=== PATIENT | female | born 1980 | race Caucasian/White ===

== ENCOUNTER → 2024-10-24 | Outpatient (CLI) | payer MEDICAID, SELFPAY ==
[2024-10-27 17:07] LABS: Anti-Cardiolipin Ab, IgG, Qn < 9 GPL U/mL (0-14); Anti-Cardiolipin Ab, IgM, Qn < 9 MPL U/mL (0-12); Beta-2-Glycoprotein I IgA <9 (0-25); Beta-2-Glycoprotein I IgG <9 (0-20); Beta-2-Glycoprotein I IgM <9 (0-32); Dilute Prothrombin Time (dPT) 34.3 sec (0.0-47.6); Dilute Russell Viper Venom 35.9 sec (0.0-47.0); Interpretation Comment: (.); PTT-LA 33.5 sec (0.0-43.5); Thrombin Time 17.1 sec (0.0-23.0); dPT Confirm Ratio 0.95 Ratio (0.00-1.34)
== END | disposition home or self-care (01) ==
PROVIDERS: PCP Internal Medicine; Referring Provider Obstetrics & Gynecology; Visit Provider Obstetrics & Gynecology
DX: N96 Recurrent pregnancy loss (principal)
CPT/HCPCS: 36415; 86146; 86147

== ENCOUNTER → 2024-11-25 | Outpatient (CLI) | payer MEDICAID, SELFPAY ==
--- NOTE | 2024-11-25 12:10 | EMB_PTH ---
PATIENT: SOFIA AMADOR LOC: [facility] U#:[id number] AGE/SX: 44/F ROOM: RE11/25/[address]: Dr. Lala Villalta MD : [id number] BED: DIS: 11/25/2024 SPEC #: [id number] RECD: 11/25/24 17:04 STATUS: VIRIDIANA REQ #: [id number] KAYLEE: 11/25/24 12:[address]: Lala Villalta DEPT: SURGICAL PATHOLOGY RECD BY: Kiara Rueda ENTERED: 11/26/24 09:21 SP TYPE: ENDOM BX/C LINDEN DR: Dr. Jason Dhaliwal MD Tissues: Endometrium, NOS Procedures: Surgery Specimen Level IV HEADER OPERATION: Endometrial biopsy PRE-OP DIAGNOSIS: Abnormal uterine bleeding, due to adenomyosis TISSUE SUBMITTED: Endometrial tissue MICROSCOPIC DIAGNOSIS ENDOMETRIUM, BIOPSY: * Secretory endometrium. MICROSCOPIC DESCRIPTION Slides are reviewed. GROSS DESCRIPTION Received is one container labeled with the patient's name and not further designated. The specimen consists of 3 cylindrical fragments and multiple smaller fragments of basurto-brown soft tissue, which have an aggregate measurement of 2 x 1.8 x 0.3 cm. TE1. EH 11/26/24 CPT: 91567
--- NOTE | 2024-12-02 07:30 | HYST_PTH ---
PATIENT: SOFIA AMADOR [id number] AGE/SX: 44/F ROOM: RE11/25/[address]: Dr. Lala Villalta MD : 1980 BED: DIS: 11/25/2024 SPEC #: [id number] RECD: 12/03/24 09:08 STATUS: VIRIDIANA REJavy #: [id number] KAYLEE: 12/02/24 07:[address]: Lala Villalta DEPT: SURGICAL PATHOLOGY RECD BY: Herminio Ward ENTERED: 12/03/24 09:08 SP TYPE: HYSTERECT OTHR DR: Dr. Jason Dhaliwal MD Tissues: A - Uterus, NOS B - OVARIAN CYST Procedures: Immunohistochemical Stains Surgery Specimen Level V IHC Stain ADDITIONAL HEADER OPERATION: ERAS, laparoscopic assisted vaginal hysterectomy, right salpingectomy PRE-OP DIAGNOSIS: Abnormal uterine bleeding due to adenomyosis, dyspareunia due to medical condition in female, uterine fibroid TISSUE SUBMITTED: A- Uterus, cervix, bilateral fallopian tubes and right ovary, B- Left ovarian cyst wall MICROSCOPIC DIAGNOSIS A. Uterus, cervix, fallopian tubes, right ovary, hysterectomy with bilateral salpingectomy and right oophorectomy: * Cervix: dilated endocervical glands. * Endometrium: secretory phase with focal glandular crowding compatible with hyperplasia (without atypia) - see note. * Myometrium: leiomyoma (2.5 cm) * Right ovary: serous borderline tumor, micropapillary variant - see Synoptic Report. * Bilateral fallopian tubes: no specific pathologic change Note: Evaluation of the endometrium is limited by suboptimal fixation. B. Left ovarian cyst wall, excision: * Serous borderline tumor, micropapillary variant - see Synoptic Report. COMMENT SYNOPTIC REPORT SPECIMEN: Procedure: laparoscopic assisted vaginal hysterectomy Specimen Integrity: Ovary not intact, received open (A, right). Ovarian cyst not intact, received fragmented (B, left). Fallopian tube, left, intact (A). Fallopian tube, right, detached (A). Uterus intact (A). TUMOR? Tumor Site: Right ovary (A). Left ovary (B). Tumor Size: 2.2 cm right ovary (A). Unknown, fragmented left ovarian cyst (B). Histologic Type: Serous borderline tumor, micropapillary variant? Histologic grade: Not applicable? Ovarian Surface Involvement: unknown (specimen B fragmented) Fallopian Tube Surface Involvement: not identified Organ Involvement: Unknown Peritoneal / Ascitic Fluid Involvement: Not submitted/unknown? Chemotherapy Response Score (CRS): Not applicable? REGIONAL LYMPH NODES? Regional Lymph Node Status: not applicable (no regional lymph nodes submitted or found)? DISTANT METASTASIS: not applicable/unknown pTNM CLASSIFICATION (AJCC 8th Edition) pT Category? _X_ pT not assigned (cannot be determined based on available pathological information)? ___ pT0: No evidence of primary tumor? ___ pT1a: Tumor limited to one ovary (capsule intact) or fallopian tube, no tumor on ovarian or fallopian ?tube surface; no malignant cells in ascites or peritoneal washings? ___ pT1b: Tumor limited to both ovaries (capsules intact) or fallopian tubes; no tumor on ovarian or ?fallopian tube surface; no malignant cells in ascites or peritoneal washings? pT1c: Tumor limited to one or both ovaries or fallopian tubes, with any of the following:? ___ pT1c1: Surgical spill? ___ pT1c2: Capsule ruptured before surgery or tumor on ovarian or fallopian tube surface? ___ pT1c3: Malignant cells in ascites or peritoneal washings? ___ pT1 (subcategory cannot be determined)? pT2: Tumor involves one or both ovaries or fallopian tubes with pelvic extension below pelvic brim or primary peritoneal cancer? ___ pT2a: Extension and / or implants on the uterus and / or fallopian tube(s) and / or ovaries? ___ pT2b: Extension to and / or implants on other pelvic tissues? ___ pT2 (subcategory cannot be determined)? pT3: Tumor involves one or both ovaries or fallopian tubes, or primary peritoneal cancer, with microscopically confirmed peritoneal metastasis outside the pelvis and / or metastasis to the retroperitoneal (pelvic and / or para-aortic) lymph nodes? ___ pT3a: Microscopic extrapelvic (above the pelvic brim) peritoneal involvement with or without positive ? retroperitoneal lymph nodes? ___ pT3b: Macroscopic peritoneal metastasis beyond pelvis 2 cm or less in greatest dimension with or ? without metastasis to the retroperitoneal lymph nodes? ___ pT3c: Macroscopic peritoneal metastasis beyond the pelvis more than 2 cm in greatest dimension ? with or without metastasis to the retroperitoneal lymph nodes (includes extension of tumor to capsule ?of liver and spleen without parenchymal involvement of either organ)? ___ pT3 (subcategory cannot be determined)? T Suffix: Not applicable? pN Category: pN not assigned (no lymph nodes submitted or found)? ADDITIONAL FINDINGS Additional Findings (select all that apply) _X_ None identified? ___ Serous tubal intraepithelial carcinoma (STIC)? ___ Endometriosis? ___ Endosalpingiosis? ___ Other (specify): SPECIAL STUDIES p53 Immunohistochemistry? _X_ Normal (wild-type) expression? (A12, B1) COMMENTS: Additional IHC utilized in the assessment: p16, ER, IA, CK7, CK20, PAX8 (blocks A12 and B1) support the diagnosis. The findings were discussed with Dr Villalta 01/14/25 at 10:30 AM. Selected slides/images (ovaries) were reviewed in intradepartmental consultation by Dr Philip Proctor ([facility] pathology division, [facility]). Selected slides/images (endometrium) were reviewed in intradepartmental consultation by Dr Eloise Pelayo and Dr David Marquez (Community pathology division, [facility]). MICROSCOPIC DESCRIPTION Slides are reviewed. These tests were developed and their performance characteristics determined by [facility]. They may not have been cleared or approved by the U.S. Food and Drug Administration. The FDA has determined that such clearance or approval is not necessary. The above immunohistochemical/dualISH markers are ordered and reviewed by the Pathologist. GROSS DESCRIPTION A. The specimen is received in fixative in one container labeled with the patient's name and designated Uterus, cervix, bilateral fallopian tubes, right ovary. The specimen weighs 165.6 gm and consists of a uterus measuring 10.0 cm in length, 6.5 cm in width, and 6.0 cm in thickness. There is an attached left fallopian tube measuring 4.0 cm in length and 0.8 cm in diameter. There is an unattached, presumed right fallopian tube measuring 4.7cm in length and 0.5cm in diameter, and a detached, very irregular ovary with multiple cysts. One of the cysts is open and has a yellow appearance. The detached ovary weighs 10.5 gm. The ectocervix measures 3.9 x 3.4 cm. The os measures 1.3 x 1.0 cm. The uterus appears partially distorted by leiomyoma(s). Upon opening the uterus, the endometrium appears thickened, 0.5 cm. Nabothian cysts are seen in the cervix and one leiomyoma in the anterior uterine wall measures 2.0 x 1.7 x 2.5 cm. No hemorrhage or necrosis is observed grossly in the leiomyoma. The myometrium is 2.5 cm in maximal thickness. [employer] sections are submitted as follows: A1- anterior cervix A2- posterior cervix A3- anterior uterine wall and portions of leiomyoma A4- anterior uterine wall A5- anterior uterine wall A6- anterior uterine wall A7- posterior uterine wall A8- posterior uterine wall A9- posterior uterine wall A10- right fallopian tube A11- right ovary and left fallopian tube A12- right ovary B. The specimen is received in fixative in one container labeled with the patient's name and designated Left ovarian cyst wall. The specimen consists of multiple fragments of espinosa tissue measuring in aggregate 2.5 x 2.0 x 1.8 cm. Part of the specimen is clearly a cyst wall with a granular interior surface, 2.0 x 1.2 x 1.0 cm. The entire specimen is submitted in four cassettes. 12/03/2024 CPT:[id number]
== END | disposition home or self-care (01) ==
LOC: LABSPEC 15:07
PROVIDERS: PCP Internal Medicine; Referring Provider Obstetrics & Gynecology; Visit Provider Obstetrics & Gynecology
DX: N93.9 Abnormal uterine and vaginal bleeding, unspecified (principal); N80.03 Adenomyosis of the uterus
CPT/HCPCS: 88305; 88307

== ENCOUNTER 2024-12-02 05:26 | Day surgery (SDC) | payer MEDICAID, SELFPAY ==
--- NOTE | 2024-11-18 12:30 | PAT.ANESEVAL ---
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 When Was Last Pacemaker Check QUESTION #4 FULL TEXT: You/Your Family Experience fever (hyperthermia) with Anesthesia Last Oral Intake Last Oral intake: Last Oral Intake NPO since Meds taken in AM with sips of water? 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 - law enforcement instructor: PONV - law enforcement instructor Female Yes 11/18/24 09:03 HX of Motion Sickness No 11/18/24 09:03 HX of N/V After Surgery Yes 11/18/24 09:03 Non-Smoker Yes 11/18/24 09:03 Duration of Surgery greater Yes 11/18/24 09:03 than 60 minutes Number of Risk Factors 4 11/18/24 09:03 PONV Score Severe Risk 11/18/24 09:03 Height & Weight Height & Weight: Anesthesia: Height & Weight Height 5 ft 4 in 10/24/24 14:22 Respiratory Assessment Respiratory Assessment - law enforcement instructor: Respiratory Tract Infection Hx - law enforcement instructor Hx Respiratory Tract Infection No 11/18/24 09:03 STOP Sleep Apnea STOP Sleep Apnea - law enforcement instructor: STOP Sleep Apnea - law enforcement instructor Hx Hypertension Yes: CONTROLLED WITH MEDS 11/18/24 09:03 Hx Sleep Apnea No 11/18/24 09:03 CPAP BIPAP Do you snore loudly (louder No 11/18/24 09:03 than talking or can be heard Do you often feel tired/ No 11/18/24 09:03 fatigued/ sleepy during daytime? Has anyone observed you stop No 11/18/24 09:03 breathing during sleep? STOP Results Negative 11/18/24 09:03 QUESTION #5 FULL TEXT : Do you snore loudly (louder than talking or can be heard through closed doors)? 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 Specify any problems Hx of Preganancy in last 3 No 11/18/24 09:03 Months Nurse Filling Out Transfusion [email or web address] 11/18/24 09:03 & Questions: Date: 11/18/24 11/18/24 09:03 Time: 09:07 11/18/24 09:03 Patient unable to answer at this time (ie. confused, unrespo /Reproduction History /Reproductive History - law enforcement instructor: /Reproductive Hx- law enforcement instructor Hx Now Gestational Age (in weeks): EDC: Hx Hx Para Hx Section SAB PFSH Medical History (Updated 11/18/24 @ 09:13 by Ike Castellanos) Wears glasses Anxiety Depression Rheumatoid arthritis Anemia Non-smoker History of echocardiogram Cardiology follow-up encounter Migraine headache Thyroid disease Lupus Hypertension Headache Breast lump UTI (urinary tract infection) Bone fracture Back problem Home Medications ?Medication ?Instructions ?Recorded ?Last Taken ?Type bupropion HCl 300 mg 24 hr tablet, 300 mg PO QAM 10/23/24 Unknown History extended release (Wellbutrin XL) ergocalciferol (vitamin D2) 1,250 1,250 mcg PO SUTU 10/23/24 Unknown History mcg (50,000 unit) capsule (Vitamin D2) levothyroxine 50 mcg tablet 50 mcg PO QDAY 10/23/24 Unknown History (Synthroid) metoprolol succinate 25 mg 25 mg PO QDAY 10/23/24 Unknown History tablet,extended release 24 hr (Toprol XL) Allergy/AdvReac Type Severity Reaction Status Date / Time adhesive tape (tape) Allergy Rash Verified 11/18/24 09:02 Penicillins (PCN) Allergy Hives Verified 11/18/24 09:02 Family History (Updated 10/23/24 @ 15:23 by Ernestina Coreas) Mother Asthma Diabetes Hypertension COPD (chronic obstructive pulmonary disease) Grandmother Breast cancer Myocardial infarction, Onset Age: 73 Grandmother Diabetes Thyroid disorder Surgical History (Updated 11/18/24 @ 09:13 by Ike Castellanos) History of delivery Social History (Updated 10/24/24 @ 11:20 by Abena Rehman) number of children: 3 current occupational status: employed 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 Normal sinus rhythm. Echo (EF%) pertinent findings: April 25, 2024. Ejection fraction 60%. There is no aortic stenosis. Consult pertinent findings: April 09, 2024. 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 1. Shortness of breath-check stress test to rule out ischemia. Echo to rule out any underlying structural abnormalities. 2. Systemic lupus erythematosus with lung involvement-patient follows with rheumatology. Never seen cardiology though?will order echo. Recommendation Anesthesia Recommendation Anesthesia recommendation: F/U recommended (Last consult in April 09, 2024 states that they were planning to do a stress test. I do not see evidence of this. Need cardiology to clear patient or if stress test has been done we need to find results.)
--- NOTE | 2024-11-19 14:54 | PAT.ANESEVAL ---
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 When Was Last Pacemaker Check QUESTION #4 FULL TEXT: You/Your Family Experience fever (hyperthermia) with Anesthesia Last Oral Intake Last Oral intake: Last Oral Intake NPO since Meds taken in AM with sips of water? 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 Female Yes 11/18/24 09:03 HX of Motion Sickness No 11/18/24 09:03 HX of N/V After Surgery Yes 11/18/24 09:03 Non-Smoker Yes 11/18/24 09:03 Duration of Surgery greater Yes 11/18/24 09:03 than 60 minutes Number of Risk Factors 4 11/18/24 09:03 PONV Score Severe Risk 11/18/24 09:03 Height & Weight Height & Weight: Anesthesia: Height & Weight Height 5 ft 4 in 10/24/24 14:22 Respiratory Assessment Respiratory Assessment - recreation professor: Respiratory Tract Infection Hx - recreation professor Hx Respiratory Tract Infection No 11/18/24 09:03 STOP Sleep Apnea STOP Sleep Apnea - recreation professor: STOP Sleep Apnea - recreation professor Hx Hypertension Yes: CONTROLLED WITH MEDS 11/18/24 09:03 Hx Sleep Apnea No 11/18/24 09:03 CPAP BIPAP Do you snore loudly (louder No 11/18/24 09:03 than talking or can be heard Do you often feel tired/ No 11/18/24 09:03 fatigued/ sleepy during daytime? Has anyone observed you stop No 11/18/24 09:03 breathing during sleep? STOP Results Negative 11/18/24 09:03 QUESTION #5 FULL TEXT : Do you snore loudly (louder than talking or can be heard through closed doors)? 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 Specify any problems Hx of Preganancy in last 3 No 11/18/24 09:03 Months Nurse Filling Out Transfusion [email or web address] 11/18/24 09:03 & Questions: Date: 11/18/24 11/18/24 09:03 Time: 09:07 11/18/24 09:03 Patient unable to answer at this time (ie. 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: /Reproductive Hx- recreation professor Hx Now Gestational Age (in weeks): EDC: Hx Hx Para Hx Section SAB PFSH Medical History (Updated 11/18/24 @ 09:13 by Ike Castellanos) Wears glasses Anxiety Depression Rheumatoid arthritis Anemia Non-smoker History of echocardiogram Cardiology follow-up encounter Migraine headache Thyroid disease Lupus Hypertension Headache Breast lump UTI (urinary tract infection) Bone fracture Back problem Home Medications ?Medication ?Instructions ?Recorded ?Last Taken ?Type bupropion HCl 300 mg 24 hr tablet, 300 mg PO QAM 10/23/24 Unknown History extended release (Wellbutrin XL) ergocalciferol (vitamin D2) 1,250 1,250 mcg PO SUTU 10/23/24 Unknown History mcg (50,000 unit) capsule (Vitamin D2) levothyroxine 50 mcg tablet 50 mcg PO QDAY 10/23/24 Unknown History (Synthroid) metoprolol succinate 25 mg 25 mg PO QDAY 10/23/24 Unknown History tablet,extended release 24 hr (Toprol XL) Allergy/AdvReac Type Severity Reaction Status Date / Time adhesive tape (tape) Allergy Rash Verified 11/18/24 09:02 Penicillins (PCN) Allergy Hives Verified 11/18/24 09:02 Family History (Updated 10/23/24 @ 15:23 by Ernestnia Coreas) Mother Asthma Diabetes Hypertension COPD (chronic obstructive pulmonary disease) Grandmother Breast cancer Myocardial infarction, Onset Age: 73 Grandmother Diabetes Thyroid disorder Surgical History (Updated 11/18/24 @ 09:13 by Ike Castellanos) History of delivery Social History (Updated 10/24/24 @ 11:20 by Abena Rehman) number of children: 3 current occupational status: employed 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 Normal sinus 11/18/24 12:37 rhythm. Echo Pertinent Findings Echo (EF%) pertinent findings April 25, 2024. Ejection 11/18/24 13:02 fraction 60%. There is no aortic stenosis. Consult Pertinent Findings Consult pertinent findings April 09, 2024. Vik JAIN. 11/18/24 12:45 1. Shortness of breath- check stress test to rule out ischemia. Echo to rule out any underlying structural abnormalities. 2. Systemic lupus erythematosus with lung involvement-patient follows with rheumatology. Never seen cardiology though?will order echo. Current Visit Impressions Current Visit Impressions: Await stress test results or cardiology report Recommendation Anesthesia Recommendation Anesthesia recommendation: F/U recommended
--- NOTE | 2024-11-19 15:02 | NURSING ---
XIOMY BROWN CALLED, SPOKE WITH MAUREEN REGARDING PT NEEDING CARDIO CLEARANCE OR EVIDENCE OF STRESS TEST.
[2024-11-26 09:31] LABS: Absolute Lymphocyte Count 2.26 X10^3/uL (0.83-4.51); Absolute Neutrophil Count 5.1 X10^3/uL (2.0-7.7); Basophil# 0.02 X10^3/uL; Basophil% 0.2 % (0-1); Eosinophil# 0.03 X10^3/uL; Eosinophils% 0.4 % (0-5); Hematocrit 41.2 % (37-47); Hemoglobin 13.4 g/dL (12.0-15.0); Lymphocyte # 2.26 X10^3/ul (0.83-4.51); Lymphocyte % 28.2 % (19-41); Mean Corp Hgb Conc 32.5 g/dL (32-36); Mean Corpuscular Hgb 30.5 pg (27.0-32.0); Mean Corpuscular Volume 93.6 fL (81-99); Mean Platelet Vol. 10.2 fl (6.2-12.0); Monocyte# 0.55 X10^3/uL; Monocyte% 6.9 % (0-10); NRBC Flagged by Analyzer 0 % (0-5); Neutrophil # 5.14 X10^3/uL (2.7-7.7); Neutrophil % 64.1 % (47-70); Platelet Count 253 K/mm3 (150-450); RBC Distribution Width CV 13.5 % (11.6-14.6); RBC Distribution Width SD 46.4 fl (35.1-43.9)
[2024-11-26 10:13] LABS: Anion Gap 10 (5-15); BUN 9 mg/dL (4-19); Calcium,Total 9.3 mg/dL (7.6-11.0); Carbon Dioxide 24.6 mmol/L (21.0-32.0); Chloride 103 mmol/L (98-108); Creatinine, Serum 0.82 mg/dL (0.70-1.20); EST Glomerular Filtration Rate 90 (>60); Glucose 113 mg/dL (70-99); Potassium 4.1 mmol/L (3.3-5.1); Sodium Level 138 mmol/L (133-145)
--- NOTE | 2024-11-26 11:10 | PAT.ANE_ITS ---
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 When Was Last Pacemaker Check QUESTION #4 FULL TEXT: You/Your Family Experience fever (hyperthermia) with Anesthesia Last Oral Intake Last Oral intake: Last Oral Intake NPO since Meds taken in AM with sips of water? 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 Female Yes 11/18/24 09:03 HX of Motion Sickness No 11/18/24 09:03 HX of N/V After Surgery Yes 11/18/24 09:03 Non-Smoker Yes 11/18/24 09:03 Duration of Surgery greater Yes 11/18/24 09:03 than 60 minutes Number of Risk Factors 4 11/18/24 09:03 PONV Score Severe Risk 11/18/24 09:03 Height & Weight Height & Weight: Anesthesia: Height & Weight Height 5 ft 4 in 10/24/24 14:22 Respiratory Assessment Respiratory Assessment - casino assistant manager: Respiratory Tract Infection Hx - casino assistant manager Hx Respiratory Tract Infection No 11/18/24 09:03 STOP Sleep Apnea STOP Sleep Apnea - casino assistant manager: STOP Sleep Apnea - casino assistant manager Hx Hypertension Yes: CONTROLLED WITH MEDS 11/18/24 09:03 Hx Sleep Apnea No 11/18/24 09:03 CPAP BIPAP Do you snore loudly (louder No 11/18/24 09:03 than talking or can be heard Do you often feel tired/ No 11/18/24 09:03 fatigued/ sleepy during daytime? Has anyone observed you stop No 11/18/24 09:03 breathing during sleep? STOP Results Negative 11/18/24 09:03 QUESTION #5 FULL TEXT : Do you snore loudly (louder than talking or can be heard through closed doors)? 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 Specify any problems Hx of Preganancy in last 3 No 11/18/24 09:03 Months Nurse Filling Out Transfusion [email or web address] 11/18/24 09:03 & Questions: Date: 11/18/24 11/18/24 09:03 Time: 09:07 11/18/24 09:03 Patient unable to answer at this time (ie. 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: /Reproductive Hx- casino assistant manager Hx Now Gestational Age (in weeks): EDC: Hx Hx Para Hx Section SAB PFSH Medical History Wears glasses Anxiety Depression Rheumatoid arthritis Anemia Non-smoker History of echocardiogram Cardiology follow-up encounter Migraine headache Thyroid disease Lupus Hypertension Headache Breast lump UTI (urinary tract infection) Bone fracture Back problem Home Medications ?Medication ?Instructions ?Recorded ?Last Taken ?Type bupropion HCl 300 mg 24 hr tablet, 300 mg PO QAM 10/23 Unknown History extended release (Wellbutrin XL) ergocalciferol (vitamin D2) 1,250 1,250 mcg PO SUTU Unknown History mcg (50,000 unit) capsule (Vitamin D2) levothyroxine 50 mcg tablet 50 mcg PO QDAY 10/23/24 Un known History (Synthroid) metoprolol succinate 25 mg 25 mg PO QDAY 10/23/24 Unkn own History tablet,extended release 24 hr (Toprol XL) phentermine 37.5 mg tablet 37.5 mg PO QDAY 11/25/24 Un known History (Adipex-P) Allergy/AdvReac Type Severity Reaction Status Date / Time adhesive tape (tape) Allergy Rash Verified 11/25/24 11:39 Penicillins (PCN) Allergy Hives Verified 11/25/24 11:39 Family History Mother Asthma Diabetes Hypertension COPD (chronic obstructive pulmonary disease) Grandmother Breast cancer Myocardial infarction, Onset Age: 73 Grandmother Diabetes Thyroid disorder Surgical History History of delivery Social History number of children: 3 current occupational status: employed 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 Normal sinus 11/18/24 12:37 rhythm. Echo Pertinent Findings Echo (EF%) pertinent findings April 25, 2024. Ejection 11/18/24 13:02 fraction 60%. There is no aortic stenosis. Consult Pertinent Findings Consult pertinent findings April 09, 2024. Vik JAIN. 11/18/24 12:45 1. Shortness of breath- check stress test to rule out ischemia. Echo to rule out any underlying structural abnormalities. 2. Systemic lupus erythematosus with lung involvement-patient follows with rheumatology. Never seen cardiology though?will order echo. Recommendation Anesthesia Recommendation Anesthesia recommendation: OPTIMIZED for anesthesia
[2024-12-02] VITALS (11 sets, daily range): BP systolic 99–137; BP diastolic 62–83; PULSE 84–92; RESP 12–21; TEMP 36.2–36.7; O2SAT 95–100; BMI 37.2
[2024-12-02 06:12] LABS: Internal QC Validated? YES +Cl - CLEAR BKGD; Pregnancy, Urine Negative Negative
[2024-12-02] MEDS: Lactated Ringers 1,000 ML 40 ML IV ×2 (06:16→13:37)
[2024-12-02] MEDS: Magnesium 1 GM over 15 mins IV (06:16)
[2024-12-02] MEDS: Gabapentin 600 MG Tablet PO (06:34)
[2024-12-02] MEDS: Celecoxib 200 MG Capsule 400 MG PO (06:34)
[2024-12-02] MEDS: Acetaminophen 500 MG Tablet 1000 MG PO ×2 (06:34→13:38)
[2024-12-02] MEDS: Phenazopyridine 95 MG Tablet 190 MG PO (06:35)
[2024-12-02] MEDS: Enoxaparin 40 MG/0.4 ML Syringe SC (06:35)
--- NOTE | 2024-12-02 07:04 | PCM.PRE.AN2 ---
ASA Classification* ASA Classification ASA Classification: 2 (Please keep spine/neck neutral due to RA) Assessment & Plan Anesthesia* Anesthesia Assessment Anesthesia Assessment: Discussed sedation and/or anesthesia options, risks, benefits, and alternatives with patient/parents/legal guardian/POA. Questions invited. The patient/parents/legal guardian/POA seems to understand and agrees to proceed with anesthesia plan. Reviewed the physical assessment, medical history, allergy history and patient home medications list prior to surgery/procedure/anesthetic and documented any changes. Performed airway and anesthesia risk assessments. Anesthesia Type Anesthesia Type: General (Pleasant 44 F with HTN, lupus with some lung involvement, hypothyroid, RA) Anesthesia Focused Assessment* Temperature: 98.0 F Pulse Rate: 89 Blood Pressure: 137/83 Respiratory Rate: 18 Pulse Ox: 100 Oxygen Delivery Method: Room Air Airway Assessment Mouth opens: >3 cm Mallampati Score: II Teeth Condition: Intact and Missing (many missing) Neck Range of motion (ROM): Full ROM (although has full ROM, keep spine/neck neutral due to RA) Focused Labs Anesthesia Preop lab: CBC WBC 8.0 K/mm3 (4.4-11.0) 11/26/24 09:03 11/26/24 RBC 4.40 M/mm3 (4.2-5.4) 11/26/24 09:03 11/26/24 Hgb 13.4 g/dL (12.0-15.0) 11/26/24 09:03 11/26/24 Hct 41.2 % (37-47) 11/26/24 09:03 11/26/24 Plt Count 253 K/mm3 (150-450) 11/26/24 09:03 11/26/24 CHEMISTRY Potassium 4.1 mmol/L (3.3-5.1) 11/26/24 09:01 11/26/24 Sodium 138 mmol/L (133-145) 11/26/24 09:01 11/26/24 Magnesium 2.0 mg/dL (1.5-2.2) 11/26/24 09:01 11/26/24 BUN 9 mg/dL (4-19) 11/26/24 09:01 11/26/24 Creatinine 0.82 mg/dL (0.70-1.20) 11/26/24 09:01 11/26/24 Glucose 113 mg/dL (70-99) H 11/26/24 09:01 11/26/24 TSH 3.030 uIU/mL (0.300-4.200) 11/26/24 09:01 11/26/24 COAG Urine Test Negative Negative 12/02/24 05:50 12/02/24 [facility] Clinic Negative 11/25/24 11:51 11/25/24 Pre-Assessment Diagnosis/Proposed Procedure Planned Operative Procedure(s): LAP ASSISTED VAGINAL HYSTERECTOMY, BILATERAL SALPINGECTOMY Anesthesia History 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 When Was Last Pacemaker Check QUESTION #4 FULL TEXT: You/Your Family Experience fever (hyperthermia) with Anesthesia Last Oral Intake Last Oral intake: Last Oral Intake NPO since 03:15 12/02/24 06:25 Meds taken in AM with sips of No 12/02/24 06:25 water? 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 - national sales representative: PONV - national sales representative Female Yes 11/18/24 09:03 HX of Motion Sickness No 11/18/24 09:03 HX of N/V After Surgery Yes 11/18/24 09:03 Non-Smoker Yes 11/18/24 09:03 Duration of Surgery greater Yes 11/18/24 09:03 than 60 minutes Number of Risk Factors 4 11/18/24 09:03 PONV Score Severe Risk 11/18/24 09:03 Height & Weight Height & Weight: Anesthesia: Height & Weight Height 5 ft 4 in 12/02/24 06:25 Weight: 98.3 kg 12/02/24 06:25 Body Mass Index (BMI) 37.2 12/02/24 06:25 Respiratory Assessment Respiratory Assessment - national sales representative: Respiratory Tract Infection Hx - national sales representative Hx Respiratory Tract Infection No 11/18/24 09:03 STOP Sleep Apnea STOP Sleep Apnea - national sales representative: STOP Sleep Apnea - national sales representative Hx Hypertension Yes: CONTROLLED WITH MEDS 11/18/24 09:03 Hx Sleep Apnea No 11/18/24 09:03 CPAP BIPAP Do you snore loudly (louder No 11/18/24 09:03 than talking or can be heard Do you often feel tired/ No 11/18/24 09:03 fatigued/ sleepy during daytime? Has anyone observed you stop No 11/18/24 09:03 breathing during sleep? STOP Results Negative 11/18/24 09:03 QUESTION #5 FULL TEXT : Do you snore loudly (louder than talking or can be heard through closed doors)? 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 Specify any problems Hx of Preganancy in last 3 No 11/18/24 09:03 Months Nurse Filling Out Transfusion [id number] 11/18/24 09:03 & Questions: Date: 11/18/24 11/18/24 09:03 Time: 09:07 11/18/24 09:03 Patient unable to answer at this time (ie. confused, unrespo /Reproduction History /Reproductive History - national sales representative: /Reproductive Hx- national sales representative Hx Now Gestational Age (in weeks): EDC: Hx Hx Para Hx Section SAB Active Medications Active Medications: Current Medications Generic Name Dose Route Start Last Admin Trade Name Freq PRN Reason Stop Dose Admin Acetaminophen 1,000 mg 12/02/24 07:35 12/02/24 06:34 Acetaminophen 500 Mg Tablet PO 12/02/24 07:36 1,000 mg PREOP ONE Administration Celecoxib 400 mg 12/02/24 07:35 12/02/24 06:34 Celecoxib 200 Mg Capsule PO 12/02/24 07:36 400 mg X1 ONE Administration Dexamethasone Sodium Phosphate 8 mg 12/02/24 07:35 Dexamethasone 4 Mg/Ml Vial IV 12/02/24 07:36 X1 ONE Enoxaparin Sodium 40 mg 12/02/24 07:35 12/02/24 06:35 Enoxaparin 40 Mg/0.4 Ml Syringe SC 12/02/24 07:36 40 mg X1 ONE Administration Gabapentin 600 mg 12/02/24 07:35 12/02/24 06:34 Gabapentin 600 Mg Tablet PO 12/02/24 07:36 600 mg PREOP ONE Administration Lactated Ringer's 1,000 mls @ 40 mls/hr 12/02/24 07:35 12/02/24 06:16 IV 40 mls/hr .Q25H DAIN Administration Clindamycin Phosphate 900 mg in 50 mls @ 75 mls/hr 12/02/24 07:35 Cleocin IV 12/02/24 08:14 PREOP ONE Gentamicin Sulfate 360 mg/ 59 mls @ 118 mls/hr 12/02/24 07:35 Dextrose IV 12/02/24 08:04 PREOP ONE Magnesium Sulfate 1 gm/ 102 mls @ 408 mls/hr 12/02/24 07:35 12/02/24 06:16 Dextrose IV 12/02/24 07:49 408 mls/hr X1 ONE Administration Insulin Human Lispro 0 unit 12/02/24 07:35 Insulin Lispro 100 Unit/Ml Insuln.Pen SC 12/02/24 18:00 Q4H PRN PRN BG >/= 180, SEE PROTOCOL Protocol Ondansetron HCl 4 mg 12/02/24 07:35 Ondansetron 4 Mg/2 Ml Vial IV 12/02/24 07:36 X1 ONE Phenazopyridine HCl 190 mg 12/02/24 07:35 12/02/24 06:35 Phenazopyridine 95 Mg Tablet PO 12/02/24 07:36 190 mg X1 ONE Administration Scopolamine HBr 1 patch 12/02/24 07:35 Scopolamine 1mg/72hr Patch TD 12/02/24 07:36 X1 ONE PFSH Medical History Wears glasses Anxiety Depression Rheumatoid arthritis Anemia Non-smoker History of echocardiogram Cardiology follow-up encounter Migraine headache Thyroid disease Lupus Hypertension Headache Breast lump UTI (urinary tract infection) Bone fracture Back problem Home Medications ?Medication ?Instructions ?Recorded ?Last Taken ?Type bupropion HCl 300 mg 24 hr tablet, 300 mg PO QAM 10/23/24 12/01/24 History extended release (Wellbutrin XL) ergocalciferol (vitamin D2) 1,250 1,250 mcg PO SUTU 10/23/24 11/30/24 History mcg (50,000 unit) capsule (Vitamin D2) levothyroxine 50 mcg tablet 50 mcg PO QDAY 10/23/24 12/01/24 History (Synthroid) metoprolol succinate 25 mg 25 mg PO QDAY 10/23/24 12/01/24 History tablet,extended release 24 hr (Toprol XL) phentermine 37.5 mg tablet 37.5 mg PO QDAY 11/25/24 11/25/24 History (Adipex-P) Allergy/AdvReac Type Severity Reaction Status Date / Time adhesive tape (tape) Allergy Rash Verified 12/02/24 06:39 Penicillins (PCN) Allergy Hives Verified 12/02/24 06:39 Family History Mother Asthma Diabetes Hypertension COPD (chronic obstructive pulmonary disease) Grandmother Breast cancer Myocardial infarction, Onset Age: 73 Grandmother Diabetes Thyroid disorder Surgical History History of delivery Social History number of children: 3 current occupational status: employed 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
--- NOTE | 2024-12-02 07:20 | HP.PCM_ITS ---
History and Physical Date of Admission: 12/02/24 Intake Vital Signs 10/24/2510:14 10/24/2513:22 11/25/2510:57 Height 5 ft 4 in 5 ft 4 in 5 ft 4 in Weight: 214 lb 4 oz 212 lb BMI 36.8 36.3 BP 138/84 H 131/84 H Intake Visit Reasons: EMB/preop Lens Marker Required: No Is patient in pain?: Yes (lower back and right lower pelvic/abdominal area) Pain scale (1-10): 4 Feel stressed/tense/nervous/anxious/difficulty sleeping: not at all Allergies adhesive tape (tape) Allergy (Verified 11/25/24 11:39) RashPenicillins (PCN) Allergy (Verified 11/25/24 11:39) Hives Medications ?Medication ?Instructions ?Recorded ?Confirmed ?Type bupropion HCl 300 mg 24 hr tablet, 300 mg PO QAM 10/23/24 11/25/24 History extended release (Wellbutrin XL) ergocalciferol (vitamin D2) 1,250 1,250 mcg PO SUTU 10/23/24 11/25/24 Hist ory mcg (50,000 unit) capsule (Vitamin D2) levothyroxine 50 mcg tablet 50 mcg PO QDAY 10/23/24 11/25/24 History (Synthroid) metoprolol succinate 25 mg 25 mg PO QDAY 10/23/24 11/25/24 History tablet,extended release 24 hr (Toprol XL) phentermine 37.5 mg tablet 37.5 mg PO QDAY 11/25/24 11/25/24 Histor y (Adipex-P) Is last menstrual period known: Yes Last Menstrual Period: 10/18/24 (irregular) Post menopausal: No Patient : No PFSH Medical History Wears glasses Anxiety Depression Rheumatoid arthritis Anemia Non-smoker History of echocardiogram Cardiology follow-up encounter Migraine headache Thyroid disease Lupus Hypertension Headache Breast lump UTI (urinary tract infection) Bone fracture Back problem Surgical History History of delivery Family History Mother Asthma Diabetes Hypertension COPD (chronic obstructive pulmonary disease)Grandmother Breast cancer Myocardial infarction, Onset Age: 73Grandmother Diabetes Thyroid disorder Social History number of children: 3 current occupational status: employed 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 she has had heavy irregular periods, she hadn't had one for months and then was having lower pelvic pain, seen in the ER and had a ct scan, and then a Pelvic ultraosund that showed adenomyosis 10 cm uterus and 2 cm fibroid. she had a heavy crmapy period. she had bloodwork done by another obgyn showing she isn't in menopause. she bleeds through double protection it is so heavy, she feels large clots. She has taken OCPs in the past and had side effects with severe mood issues, didn't tolerate it at all. she also has dyspareunia increasing over the last few years. clearaed by cardiology today at , will obtian records. Female Reproductive History Last Menstrual Period: 10/18/24 (irregular) Cycle Length: >35 Bleeding Duration: 5 Questions: metorrhagia: No, sexually active: Yes, dyspareunia: Yes and PCB: No Menopausal Symptoms: No hot flashes, No night sweats, No weight change, No mood changes, No difficulty concentrating, No sleep problems and No change in libido History 3 Elective abortions Hx Para 3 Spontaneous abortions Hx # Term Pregnancies Ectopic pregnancies Hx # Pregnancies Multiple births # of living children 3 Past Pregnancies Del. Date Name GA/Weeks Outcome Route Bth Weight Infant Gen Labor Lgth Anesthesia Del Locatn Provider FOB Unknown 1998 Florencio Unknown 2001 Michael Unknown 2003 Demi ROS Const Constitutional: Denies fatigue, night sweats, weight gain or weight loss ENT ENT: Reports system reviewed and no additional complaints, except as documented Cardio Card: Denies chest pain Resp Resp: Denies cough or dyspnea GI GI: Reports as per HPI; Denies constipation, nausea or vomiting : Reports as per HPI; Denies hot flashes, nipple discharge, vaginal discharge, vaginal dryness, vaginal odor or vaginal pruritus Musc Musc: Denies arthralgias, back pain or muscle weakness Skin Skin/Breast: Denies alopecia, change in hair, dry skin, breast mass, breast pain, breast skin changes or nipple discharge Neuro Neuro: Reports system reviewed and no additional complaints, except as documented Psych Psych: Reports system reviewed and no additional complaints, except as documented; Denies change in libido or difficulty concentrating Endo Endo: Denies cold intolerance, excessive sweating, heat intolerance or polydipsia Hai/Lymph Hematologic/Lymphatic: Denies easy bleeding, Denies easy bruising and Denies lymphadenopathy Exam Const General: cooperative, healthy appearing, comfortable, no acute distress and well developed Orientation: alert [facility] Head: normal to inspection and normocephalic Ears: hearing grossly normal bilaterally and external ears normal Nose: external nose normal and nares normal Face and sinus: normal facial exam Neck Neck: normal visual inspection and no lymphadenopathy Thyroid: thyroid normal Chest Chest palpation & inspection: normal inspection of the chest Resp Effort & Inspection: normal respiratory effort Auscultation: clear to auscultation bilaterally Cardio Rate: regular rate Rhythm: regular rhythm Heart Sounds: S1 normal and S2 normal GI Inspection: normal to inspection and non-distended Palpation: soft and no hepatosplenomegaly General: bladder normal to palpation External Female Exam: normal external appearance and normal appearance of the urethra Urethra: normal appearance of the urethra, normal palpation and no discharge Speculum Exam - Vagina: normal appearance of the vagina and normal vaginal discharge Speculum Exam - Cervix: normal appearance of the cervix and nontender Bimanual Exam- Vagina & Uterus: normal bimanual exam, uterine size normal, bladder normal to palpation, uterine shape normal, No tender, uterine mobility normal, consistency normal, normal palpation and non-tender Bimanual Exam- Adnexa, other: normal adnexae, adnexae mobile, no masses and normal Pelvic Support: normal Musc Other: gross motor intact no deficits, full bilateral strength Skin General: no rashes or lesions noted Neuro General: patient alert, patient awake, moves all extremities and no focal motor deficits Motor: muscle tone normal throughout Extrem General: normal to inspection and no pedal edema Psych Appearance: grossly normal Mental Status: mental status grossly normal Affect: normal affect Speech and Movement: speech and movement normal Office Procedures Endometrial Biopsy Endometrial Biopsy Test: Yes Negative Consent Signed: Yes Time out checklist: patient, procedure, site marked/identified, positioning of patient, supplies available, allergies confirmed and team agrees on procedure Time out time: 11:59 Details: Cervix prepped with betadine and pipelle inserted into uterus without complication. Specimen obtained and sent to lab for analysis. All instruments removed from vagina without complications. Excellent hemostasis noted. 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 plan LAVHBS (2) Dyspareunia due to medical condition in female: Status: Acute (3) Uterine fibroid: Status: Acute Orders: Orders POC Urine Today Z30.9 - Encounter for contraceptive management, unspecified Endometrial Biopsy Today Plan After discussing the patient's diagnosis and treatment plan options, patient wishes to proceed with surgical management. I have discussed with the patient the risks, benefits, and alternatives of the procedure which include but are not limited to risks of anesthesia, bleeding, infection, possible damage to bowel, bladder, or surrounding vasculature which could lead to additional surgery to evaluate any complications. Patient agrees to procedure and wishes to proceed. ACOG/uptodate references given for additional information regarding procedure. UPDATE- I have seen the patient and performed any clinically relevant updates to the history and physical exam. Lala Villalta MD
[2024-12-02] MEDS: Clindamycin 900 MG/50 ML BAG 75 MG IV (07:27)
[2024-12-02] MEDS: dexAMETHasone 4 MG/ML Vial 8 MG IV (07:32)
[2024-12-02] MEDS: Bupivacaine 0.25% 30 ML Vial (08:00)
[2024-12-02] MEDS: Vasopressin 20 UNITS/ML Vial (10:00)
[2024-12-02 10:25] LABS: Bedside Glucose 103 mg/dL (74-106)
--- NOTE | 2024-12-02 11:36 | PCM.POST.ANE ---
Anesthesia: Postop Eval I Current Vital Signs Temperature: 97.2 F Pulse Rate: 87 Blood Pressure: 99/62 Respiratory Rate: 16 Pulse Ox: 98 (4L O2 with ETCO2 at 42) Assessment Airway patent: Yes Spontaneous unlabored respirations: Yes nausea: No Vomiting: No Anesthesia Complication: No Fluid Hydration Crystalloid volume administer (ml): 1,800 Total IV fluid infused: 1,800 Progress Note Anesthesia document: Postop Eval 1 completed: Yes
--- NOTE | 2024-12-02 12:09 | PCM.OPRPT ---
Problems Associated Problem List Diagnoses (1) Uterine fibroid: (2) Dyspareunia due to medical condition in female: (3) Abnormal uterine bleeding due to adenomyosis: (4) S/P laparoscopic assisted vaginal hysterectomy (LAVH): (5) S/P oophorectomy: (6) H/O ovarian cystectomy: Procedures Urinary/Genital [id number]: 21710 LAVH+BS/O <250gr Uterus Operative Report (Standard) Operative Information Date of Procedure: 12/02/24 Pre-Operative Diagnosis: see problem list Post-Operative Diagnosis: same plus bilateral dermoid cysts Surgery/Procedure Performed: laparoscopic assisted vaginal hysterectomy bilateral salpingectomy right oophorectomy left ovarian cystectomy imaging science professor: Yes Account Specialist: Radha Morales Tasks completed by commercial lending assistant: Opening & closing, Trocar and Retracting Additional graduate teaching assistant?: Yes Additional Syrup Maker #2: Esha Lezama Tasks completed by graduate teaching assistant #2: Retracting Type of Anesthesia: General RN Documented Start/Stop Times: Operation Date: 12/02/24 07:30 Case Time Into Pre-Op 12/02/24 05:55 Out of Pre-Op 12/02/24 07:20 Anesthesia Start 12/02/24 07:27 Into Room 12/02/24 07:27 Procedure Start 12/02/24 08:00 Procedure End 12/02/24 11:20 Anesthesia End 12/02/24 11:29 Out of Room 12/02/24 11:29 Procedure Start Time: 08:00 Procedure Stop Time: 11:20 Select all DRAINS/GRAFTS/IMPLANTS that apply: Drains (grullon) Drain details: grullon Estimated Blood Loss: 300 Fluids Replaced: crystalloid Specimen collected: Yes Description of specimen(s) removed: uterus and tubes, right ovary left ovarian cyst Description of surgery: Patient received preoperative antibiotics and SCDs were on preoperatively. Patient was taken back to the operating room and placed in the dorsal lithotomy position. General anesthesia was induced and patient was prepped and draped in normal sterile fashion. Uterine manipulator was placed inside the uterus and Grullon catheter placed in the bladder. The umbilicus was grasped with towel clamps and an intraumbilical incision was made after injecting with quarter percent Marcaine and a Veress needle entered into the abdomen confirmed to be intra-abdominal with a low opening pressure. Abdomen was insufflated with CO2 gas and the Veress needle removed and the 5 mm trocar was placed under direct visualization without complication. Right and left lower quadrants were transilluminated and injected with quarter percent Marcaine and 5 mm ports placed under direct visualization. Pelvis was well visualized see operative findings for additional information. Bilateral fallopian tubes were identified and transected with the LigaSure device across the mesosalpinx to the level of the utero-ovarian ligament which was also transected with the LigaSure device. The broad ligament was opened up by transecting the round ligament bilaterally and skeletonizing the uterine vessels bilaterally, and creating a bladder flap using the LigaSure device. dense adhesions encoutntered and over an hour of dissection time was utilized both with hydrodissection, blunt and sharp, using the monopolar scissors and ligasure device. right right ovary was noted to be multicystic which was opened and sebaceous material and hair removed and no normal ovarian tissue was significantly noted so cystectomy was unable to be performed therefore the right ovary was removed by transecting the IP ligament. The uterine arteries were transected bilaterally with good visualization of the bladder and the ureters were seen to be inferior lateral to the operative area. Attention was then paid to the vaginal portion of the procedure and the cervix was grasped with Ro clamps and circumferentially injected with dilute vasopressin. A circumferential incision was made and the vaginal mucosa was mobilized off posteriorly and the cul-de-sac entered into sharply and a longneck speculum placed. The anterior cul-de-sac was then identified and entered into sharply. The uterosacral ligaments were clamped cut and suture ligated with 0 Monocryl bilaterally followed by the cardinal ligaments which were clamped cut and suture ligated bilaterally with 0 Monocryl. The uterus serially descended and was removed without difficulty with minimal morcellation. Pelvic sidewall pedicles were checked and noted to have excellent hemostasis. The vaginal mucosa was reapproximated incorporating the posterior peritoneum. This was reapproximated using 0 Vicryl [id number] sutures. Excellent hemostasis was noted. Attention paid to the abdominal portion of the procedure again. The pelvis and cul-de-sac was well visualized and no significant active bleeding noted but some raw areas were seen on the peritoneum and therefore floseal was applied. Pressure was taken down and the areas visualized and noted of excellent hemostasis. All ports were removed under direct visualization without complication and the abdomen was desufflated of air. left ovarian cysts opened and sebaceous material and hair noted so ovarian cystectomy performed, tisuse collected in a bag and sent for analysis. hemostasis noted. The instruments removed from the abdomen and the vagina vaginal sweep was negative. Port sites on the abdomen were closed with 4-0 Monocryl interrupted sutures and Steri's and windows were applied. She was awoken and taken recovery in stable condition. Surgical Findings: enlarged uterus dense vesicouterine adhesions and bilateral dermoid ovarain cysts Complications Complications: No
--- NOTE | 2024-12-02 12:17 | DCINST_ITS ---
Discharge Instructions Diet Discharge Diet: No restrictions DC O2, CPAP, BIPAP needs Home O2 Discharge instructions: No Dressing / Incision May resume sexual activity in: 6 weeks Weight Bearing Status: Full weight bearing Dressing / Incision Call your doctor if your incision/area has: Continuous Slow Oozing, Sudden Increased Bleeding, Increased Pain/ Swelling, Increased Redness and Foul Smelling Discharge Call your doctor if you observe: Fever of 101 or Higher, Using more than 1 pad per hour, Shortness of breath, Chest pain and Uncontrolled pain Suture Line Care: Avoid Pulling/Pushing and Avoid Pinching/Bending Remove Dressing in: 1 week (if present) Cleanse incision/area with: Soap & Water and Keep Dressing Clean & Dry Follow Up Care Please Follow Up With: Lala Villalta MD When: Call to make an appointment with your doctor for a postop visit in 2 and 6 weeks. Test Results: Test results from this visit will be discussed in further detail at your follow- up appointment, if applicable. Discharge Plan Admission Attending Provider: Lala Villalta Primary Care Provider: Jason Dhaliwal Instructions Print Language: British Discharge Orders/Prescriptions Prescriptions: New oxycodone-acetaminophen [Percocet] 5-325 mg tablet 1 tab PO Q4H PRN (Reason: pain) 7 Days Qty: 20 0RF naproxen 500 mg tablet 500 mg PO BID PRN PRN (Reason: Pain) Qty: 30 1RF No Action phentermine [Adipex-P] 37.5 mg tablet 37.5 mg PO QDAY Rx Instructions: must administer 30 minutes before or 1-2 hours after breakfast bupropion HCl [Wellbutrin XL] 300 mg tablet extended release 24 hr 300 mg PO QAM ergocalciferol (vitamin D2) [Vitamin D2] 1,250 mcg (50,000 unit) capsule 1,250 mcg PO SUTU metoprolol succinate [Toprol XL] 25 mg tablet extended release 24 hr 25 mg PO QDAY levothyroxine [Synthroid] 50 mcg tablet 50 mcg PO QDAY Other Ambulatory Orders: ,Urine (Routine) Timeframe: 20241202 Facility: [facility] - Location: Laboratory Ordered By: Dr. Lala Villalta Referrals / Follow Up: Jason Dhaliwal MD [Primary Care Provider] - Disposition Disposition (needs filled in before D/C Order can be placed): Home, Self Care
[2024-12-02] MEDS: Ketorolac 30 MG/ML Syringe IV (12:44)
[2024-12-02] MEDS: oxyCODONE 5 MG Tablet PO (13:38)
--- NOTE | 2024-12-02 14:10 | POSTOPAN2_ITS ---
Anesthesia Postop Eval I Sum Postop Eval Completion status Anesthesia document: Postop Eval 1 completed: Yes Anesthesia Postop Eval I Summary Anesthesia Postop Eval I Summary: Anesthesia Postop Eval I: Assessment Summary Airway patent Yes 12/02/24 11:36 INCIDENT [email or web address] Spontaneous unlabored Yes 12/02/24 11:36 INCIDENT [email or web address] respirations Mental status nausea No 12/02/24 11:36 INCIDENT [email or web address] Vomiting No 12/02/24 11:36 INCIDENT [email or web address] Anesthesia Postop Eval I: Fluid Summary Crystalloid volume administer 1,800 12/02/24 11:36 INCIDENT [email or web address].CSIR (ml) Colloids volume administered ( ml) Blood Product volume administered (ml) Total IV fluid infused 1,800 12/02/24 11:36 INCIDENT [email or web address] Anesthesia Postop Eval I: Summary Notes Anesthesia Complication No 12/02/24 11:36 INCIDENT [email or web address].CSIR Anesthesia Complication Comment: Post-operative progress note Anesthesia: Postop Eval II Evaluation Mental status: Awake Pain Level: 0 nausea: No Vomiting: No Complications Anesthesia Complication: No
--- NOTE | 2024-12-02 14:10 | PCM.POSTANE2 ---
Anesthesia Postop Eval I Sum Postop Eval Completion status Anesthesia document: Postop Eval 1 completed: Yes Anesthesia Postop Eval I Summary Anesthesia Postop Eval I Summary: Anesthesia Postop Eval I: Assessment Summary Airway patent Yes 12/02/24 11:36 STORE GIFT WRAP [email or web address].[email or web address] Spontaneous unlabored Yes 12/02/24 11:36 STORE GIFT WRAP [email or web address].CSIR respirations Mental status nausea No 12/02/24 11:36 STORE GIFT WRAP [email or web address].CSIR Vomiting No 12/02/24 11:36 STORE GIFT WRAP [email or web address].CSIR Anesthesia Postop Eval I: Fluid Summary Crystalloid volume administer 1,800 12/02/24 11:36 STORE GIFT WRAP [email or web address].CSIR (ml) Colloids volume administered ( ml) Blood Product volume administered (ml) Total IV fluid infused 1,800 12/02/24 11:36 STORE GIFT WRAP [email or web address].CSIR Anesthesia Postop Eval I: Summary Notes Anesthesia Complication No 12/02/24 11:36 STORE GIFT WRAP [email or web address].CSIR Anesthesia Complication Comment: Post-operative progress note Anesthesia: Postop Eval II Evaluation Mental status: Awake Pain Level: 0 nausea: No Vomiting: No Complications Anesthesia Complication: No
[2024-12-02 14:24] LABS: Hematocrit 35.2 % (37-47); Mean Corp Hgb Conc 34.1 g/dL (32-36); Mean Corpuscular Hgb 31.3 pg (27.0-32.0); Mean Corpuscular Volume 91.9 fL (81-99); Mean Platelet Vol. 10.1 fl (6.2-12.0); Platelet Count 219 K/mm3 (150-450); RBC Distribution Width CV 13.2 % (11.6-14.6); RBC Distribution Width SD 43.9 fl (35.1-43.9); Red Blood Count 3.83 M/mm3 (4.2-5.4); White Blood Count 11.4 K/mm3 (4.4-11.0)
== END 2024-12-02 15:28 | disposition home or self-care (01) ==
LOC: SDC 05:27 → AC 05:27
PROVIDERS: Anesthesiology; PCP Internal Medicine; Referring Provider Obstetrics & Gynecology; Visit Provider Obstetrics & Gynecology
PROC: 0UT9FZZ Resection of Uterus, Via Natural or Artificial Opening With Percutaneous Endoscopic Assistance (ICD-10-PCS; CPT 58552; principal; 2024-12-02 07:05)
DX: N93.8 Other specified abnormal uterine and vaginal bleeding (principal); M32.13 Lung involvement in systemic lupus erythematosus; N80.03 Adenomyosis of the uterus; N94.19 Other specified dyspareunia; D27.0 Benign neoplasm of right ovary; D27.1 Benign neoplasm of left ovary; D25.9 Leiomyoma of uterus, unspecified; N73.6 Female pelvic peritoneal adhesions (postinfective); I10 Essential (primary) hypertension; E03.9 Hypothyroidism, unspecified; Z79.890 Hormone replacement therapy; Z79.899 Other long term (current) drug therapy
CPT/HCPCS: 58552; 00944; 36415; 80048; 81025; 82962; 83735; 84443; 85025; 85027; 86850; 86900; 86901; J2405; J3475